=== PATIENT | female | born 1985 | race Caucasian/White ===

== ENCOUNTER 2022-10-04 09:53 | Outpatient (CLI) | payer MEDICAID, SELFPAY | END 2022-10-04 09:54 | disposition home or self-care (01) | LOC: NFLDREF 09:55 | PROVIDERS: PCP Family Medicine; Visit Provider Family Medicine | DX: R30.0 Dysuria (principal); R50.9 Fever, unspecified; R53.83 Other fatigue | CPT/HCPCS: 87086; 87186 ==

== ENCOUNTER 2022-11-17 09:44 | Outpatient (CLI) | payer MEDICAID, SELFPAY | END 2022-11-17 09:45 | disposition home or self-care (01) | LOC: NFLDREF 09:45 | PROVIDERS: PCP Family Medicine; Visit Provider Family Medicine | DX: R30.0 Dysuria (principal) | CPT/HCPCS: 87086 ==

== ENCOUNTER 2023-02-25 08:35 | Outpatient (REF) | payer MEDICAID, SELFPAY | END 2023-02-25 08:36 | disposition home or self-care (01) | LOC: NFLDREF 08:35 | PROVIDERS: PCP Family Medicine; Referring Provider Family Medicine; Visit Provider Physician Assistant | DX: R30.0 Dysuria (principal); N39.0 Urinary tract infection, site not specified | CPT/HCPCS: 87086 ==

== ENCOUNTER 2023-07-18 10:19 | Outpatient (CLI) | payer MEDICAID, SELFPAY | END 2023-07-18 10:20 | disposition home or self-care (01) | PROVIDERS: PCP Family Medicine; Visit Provider Family Medicine | DX: R10.2 Pelvic and perineal pain (principal); Z13.220 Encounter for screening for lipoid disorders; Z13.228 Encounter for screening for other metabolic disorders; Z13.21 Encounter for screening for nutritional disorder; Z13.29 Encounter for screening for other suspected endocrine disorder; Z13.0 Encounter for screening for diseases of the blood and blood-forming organs and certain disorders involving the immune mechanism | CPT/HCPCS: 80053; 80061; 82306; 82607; 82728; 84443; 86258; 86364 ==

== ENCOUNTER 2023-10-15 07:21 | Outpatient (CLI) | payer MEDICAID, SELFPAY ==
--- OUTSIDE RECORDS SUMMARY | 2023-10-15 07:23 | XMS_ITS | Clinical Summary ---
Author Organization [facility] Address [address] [place] [address] Care Team Providers Care Multimedia Producer Name Role Phone Unavailable Primary Care Provider Unavailabl e Social History Tobacco Use Types Packs/Day Years Used Date Smoking Tobacco: Never Assessed Sex and Gender Information Value Date Recorded Sex Assigned at Not on file Gender Identity Not on file Sexual Orientation Not on file Plan of Treatment Not on file
--- OUTSIDE RECORDS SUMMARY | 2023-10-15 07:23 | XMS_ITS | Continuity of Care Document ---
Author Organization [facility] Address [address] [place] [address] Phone Care Team Providers Care Technical Analyst Name Role Phone Anil Laureano Unavailable Unavailable Allergies, Adverse Reactions, Alerts Substance Reaction Status Criticality No Known Allergies Active No Inform ation Medications Medication Instructions Dosage Effective Dates (start - stop) Status Comments Medrol (Willy) 4 mg tablets in a dose pack take by oral route as directed per package instructions 0.00 - Active Procedures Procedure Date Office/Outpatient Visit,[facility] Advance Directives Directive Yes / No Effective Date File Name No Information Encounters Encounter Description Practice Location Reason(s) For Visit Diagnoses Date Provider Providers Copied on Encounter Office/Outpat ient Visit,[place], [facility], [address], [place], [place], [id number], [place] tel:[phone] [facility] Other intervertebral disc degeneration, lumbar region 1 Anastacio Ma. [facility], [address], [id number] , [place]. tel:[phone] Referring Provider: Salomon Reed, [facility] [address] [facility], [place], [address]. tel:[phone] Family History Family Member Type Diagnosis Age At Onset No Information Payers Payer name Insurance type Covered alliance party ID Authoriza tion(s) No Information Social History Type Description Quantity Date Captured Comments Alcohol Use Details Unknown Caffeine Use Details Unknown Mar-12-2021 Tobacco Use Status Current non-smoker Smoking Status Never smoker Non-Smoking Tobacco Use Details : No Details Available : No Details Available Sex Female Vital Signs Date / Time: Height Weight BMI Pulse Rate Blood Pressure Temperature Respiratory Rate Body Surface Area Head Circumference Head Circ. Percentile Wt./Beni. Percentile BMI percentile Pulse Ox Inhaled Ox 11:37 AM 65.00 in 81.193 kg (179.00 lbs) 29.7 9 kg/m eter (2) 98.10 F Chief Complaint And Reason For Visit No Information Reason For Referral Reason For Referral No Information History Of Present Illness Encounter Date Complaint History Of Prese nt Illness No Information Functional Status Date Functional Assessmen t No Information Instructions Date Instruction Additional Infor mation No Information Assessments Type Assessment Date assessment Other intervertebral disc degene ration, lumbar region Patient Care Teams Name Effective Dates (start - stop) Status Members No Information
--- OUTSIDE RECORDS SUMMARY | 2023-10-15 07:23 | XMS_ITS | Referral Summary ---
Author Organization [facility] Address [address] [place] [address] Care Team Providers Care Bioinformatics Technician Name Role Phone Unavailable Primary Care Provider Unavailabl e Social History Tobacco Use Types Packs/Day Years Used Date Smoking Tobacco: Never Assessed Sex and Gender Information Value Date Recorded Sex Assigned at Not on file Gender Identity Not on file Sexual Orientation Not on file Plan of Treatment Not on file
--- OUTSIDE RECORDS SUMMARY | 2023-10-15 07:23 | XMS_ITS | Encounter Summary ---
Author Organization [facility] Address [address] [facility] [place] [address] Care Team Providers Care Fuel System Maintenance Supervisor Name Role Phone Unavailable Primary Care Provider Kristen e Encounter Details Date Type Department Care Team (Late st Contact Info) Description 02/28/2017 Orders Only [facility] [place] [address] [place] [address] [place], Cherise [facility] [address] [facility] [place], [place] [id number] related condition, antepartum (Primary Dx) Social History Tobacco Use Types Packs/Day Years Used Date Smoking Tobacco: Never Assessed Sex and Gender Information Value Date Recorded Sex Assigned at Not on file Gender Identity Not on file Sexual Orientation Not on file documented as of this encounter Plan of Treatment Not on file documented as of this encounter Visit Diagnoses Diagnosis related condition, antepartum- Primary documented in this encounter
--- OUTSIDE RECORDS SUMMARY | 2023-10-15 07:23 | XMS_ITS | Encounter Summary ---
Author Organization [facility] Address [address] [facility] [place] [address] Care Team Providers Care Raker Buffing Wheel Name Role Phone Unavailable Primary Care Provider Unavailabl e Reason for Referral * - Closed Specialty Diagnoses / Procedures Referred By Contharrison t Referred To Contact Diagnoses related condition, antepartum [facility] [address] [place] [address] Referral ID Status Reason Start Date Expiration Date Visits Re quested Visits Authorized [id number] Closed 04/02/2017 04/02/2018 1 1 Comments half sibling has alagille syndrome LEY WORKER Encounter Details Date Type Department Care Team (Late st Contact Info) Description 04/02/2017 Orders Only [facility] [address] [place] [address] [place] [address] [place] [id number] related condition, antepartum (Primary Dx) Social History Tobacco Use Types Packs/Day Years Used Date Smoking Tobacco: Never Assessed Comments Yes Sex and Gender Information Value Date Recorded Sex Assigned at Not on file Gender Identity Not on file Sexual Orientation Not on file documented as of this encounter Plan of Treatment Scheduled Referrals Name Type Priority Associated Diagnoses Orde r Schedule MFM Genetic Counseling Referral Routine related condition, antepartum 1 Occurrences starting 04/02/2017 until 04/02/2018 documented as of this encounter Visit Diagnoses Diagnosis related condition, antepartum- Primary documented in this encounter
--- OUTSIDE RECORDS SUMMARY | 2023-10-15 07:23 | XMS_ITS | Encounter Summary ---
Author Organization [facility] Address [address] [place] [address] Care Team Providers Care Site Promotion Agent Name Role Phone Unavailable Primary Care Provider Kristen e Encounter Details Date Type Department Care Team (Late st Contact Info) Description 04/12/2019 Telephone [facility] [address] [place] [address] Myra Craft, RN Social History Tobacco Use Types Packs/Day Years Used Date Smoking Tobacco: Never Assessed Sex and Gender Information Value Date Recorded Sex Assigned at Not on file Gender Identity Not on file Sexual Orientation Not on file documented as of this encounter Plan of Treatment Not on file documented as of this encounter Visit Diagnoses Not on filedocumented in this encounter
--- NOTE | 2023-10-15 07:45 | CRLHL7_ITS ---
For Patients: As a result of the Century Cures Act, medical imaging exams and procedure reports are released immediately into your electronic medical record. You may view this report before your referring provider. If you have questions, please contact your health care provider. DIGITAL DIAGNOSTIC BILATERAL MAMMOGRAM USING TOMOSYNTHESIS AND COMPUTER-AIDED DETECTION RIGHT BREAST ULTRASOUND CLINICAL HISTORY: RIGHT breast lump. COMPARISON: None. TECHNIQUE: Digital BILATERAL mammogram in four projections with computer-aided detection. Tomosynthesis was used in this interpretation. Real-time ultrasound imaging of RIGHT breast with imaging documentation. BREAST COMPOSITION: There are areas of scattered fibroglandular density. FINDINGS: 3D CC/MLO BILATERAL mammogram images submitted. No suspicious masses or architectural distortion. No suspicious calcifications or adenopathy. Targeted RIGHT breast ultrasound performed at 2 o`clock 7 cm from the nipple corresponding to the area of concern. Normal fibroglandular tissue is present. No fibrocystic change or mass. IMPRESSION: No suspicious findings. No evidence of malignancy. RECOMMENDATIONS: Age-appropriate screening mammography. Results and recommendations discussed with the patient. BI-RADS Category 2: Benign A lay language report of this examination will be provided to the patient. Dictated by Rick Daniel MD @ 10/15/2023 9:03:40 AM jj/Dictated by: Rick Daniel MD @ 10/15/2023 9:03:00 AM (Electronically Signed)
--- NOTE | 2023-10-15 08:15 | CRLHL7_ITS ---
For Patients: As a result of the Cures Act, medical imaging exams and procedure reports are released immediately into your electronic medical record. You may view this report before your referring provider. If you have questions, please contact your health care provider. PLEASE SEE DIGITAL DIAGNOSTIC BILATERAL MAMMOGRAM PERFORMED SAME DAY CRL:[email or web address] burger/Dictated by: Rick Daniel MD @ 10/15/2023 9:03:00 AM (Electronically Signed)
== END 2023-10-15 07:22 | disposition home or self-care (01) ==
LOC: MAMMO 07:21
PROVIDERS: PCP Family Medicine; Visit Provider Family Medicine
DX: N63.12 Unspecified lump in the right breast, upper inner quadrant (principal)
CPT/HCPCS: 76642; 77066; G0279

== ENCOUNTER 2024-10-25 21:28 | Emergency (ER) | payer MEDICAID, SELFPAY ==
--- OUTSIDE RECORDS SUMMARY | 2024-10-25 21:30 | XMS_ITS | Clinical Summary ---
Author Organization [facility] Address [address] [place] [address] Care Team Providers Care Carbon Capture Power Plant Operator Name Role Phone Unavailable Primary Care Provider Unavailabl e Social History Tobacco Use Types Packs/Day Years Used Date Smoking Tobacco: Never Assessed Comments No Sex and Gender Information Value Date Recorded Sex Assigned at Not on file Legal Sex Female 4:23 AM PROGRAMS ASSISTANT Gender Identity Not on file Sexual Orientation Not on file Plan of Treatment Not on file
--- OUTSIDE RECORDS SUMMARY | 2024-10-25 21:30 | XMS_ITS | Encounter Summary ---
Author Organization [facility] Address [address] [place] [address] Care Team Providers Care Head Knitting Machine Fixer Name Role Phone Unavailable Primary Care Provider Kristen e Encounter Details Date Type Department Care Team (Late st Contact Info) Description 04/12/2019 Telephone [email or web address] [address] [place] [address] Myra Craft, RN Social History Tobacco Use Types Packs/Day Years Used Date Smoking Tobacco: Never Assessed Comments No Sex and Gender Information Value Date Recorded Sex Assigned at Not on file Legal Sex Female 4:23 AM DEPARTMENT COORDINATOR Gender Identity Not on file Sexual Orientation Not on file documented as of this encounter Plan of Treatment Not on file documented as of this encounter Visit Diagnoses Not on filedocumented in this encounter
--- OUTSIDE RECORDS SUMMARY | 2024-10-25 21:30 | XMS_ITS | Encounter Summary ---
Author Organization [facility] Address [address] [facility] [place] [address] Care Team Providers Care Bath Design Sales Consultant Name Role Phone Unavailable Primary Care Provider Kristen e Encounter Details Date Type Department Care Team (Late st Contact Info) Description 02/28/2017 Orders Only [facility] [place] [address] [place] [address] [place] [address] [place] [address] related condition, antepartum (Primary Dx) Social History Tobacco Use Types Packs/Day Years Used Date Smoking Tobacco: Never Assessed Comments Unknown Sex and Gender Information Value Date Recorded Sex Assigned at Not on file Legal Sex Female 4:23 AM PRETZEL PACKER Gender Identity Not on file Sexual Orientation Not on file documented as of this encounter Plan of Treatment Not on file documented as of this encounter Visit Diagnoses Diagnosis related condition, antepartum- Primary documented in this encounter
--- OUTSIDE RECORDS SUMMARY | 2024-10-25 21:30 | XMS_ITS | Encounter Summary ---
Author Organization [facility] Address [address] [place] [address] Care Team Providers Care Electronic Field Service Engineer Name Role Phone Unavailable Primary Care Provider Unavailabl e Reason for Referral * - Closed Specialty Diagnoses / Procedures Referred By Contac t Referred To Contact Diagnoses related condition, antepartum [place] Phone: tel: fax: Referral ID Status Reason Start Date Expiration Date Visits Re quested Visits Authorized [id number] Closed 04/02/2017 04/02/2018 1 1 Comments half sibling has alagille syndrome TIC ROOM OPERATOR Encounter Details Date Type Department Care Team (Late st Contact Info) Description 04/02/2017 Orders Only [facility] [place] [address] [place] [address] [facility] [address] [place] [address] related condition, antepartum (Primary Dx) Social History Tobacco Use Types Packs/Day Years Used Date Smoking Tobacco: Never Assessed Comments Yes Sex and Gender Information Value Date Recorded Sex Assigned at Not on file Legal Sex Female 4:23 AM CAUSTIC ROOM OPERATOR Gender Identity Not on file Sexual Orientation [...]
[2024-10-25 21:34] VITALS: BP 138/94; PULSE 79; RESP 18; TEMP 36.4; O2SAT 97; BMI 28.3
[2024-10-25 22:27] LABS: Strep A DNA Probe* NOT DETECTED (Not Detectd)
--- NOTE | 2024-10-25 22:31 | ED_ITS ---
HPI - General Adult General Time Seen by Provider: 22:31 Date Seen: 10/25/24 Chief complaint: Sore Throat Stated complaint: sore throat Time Seen by Provider: 10/25/24 22:31 Source: patient Mode of arrival: ambulatory Limitations: no limitations History of Present Illness HPI narrative: Gina is a very pleasant 38-year-old female with history of B12 deficiency othe rwise healthy who comes to the emergency room with right sided throat pain. Patient had at cold-like symptoms viral symptoms last week but improved after we can symptoms resolved. However, then begin experiencing intermittent right sided throat and neck pain. Initially this was intermittent and mainly present in the mornings but would go way at night. Today however the discomfort has been persistent all day. She is having a hard time swallowing but not having a hard time breathing. She has not had any fever this week. Related Data Allergies Allergy/AdvReac Type Severity Reaction Status Date / Time oxycodone Allergy Severe Agitated Verified 04/18/24 09:28 tomato Allergy Severe Swelling Verified 04/18/24 09:28 of Lip/Tongue/Throat adhesive Allergy Intermediate Rash Verified 04/18/24 09:28 Review of Systems Status of ROS: Reports: 10 or more systems reviewed and unremarkable except as noted in History and below Const: Denies: fever or chills ENMT: Reports: neck pain; Denies: nasal congestion Cardio: Denies: chest pain or shortness of breath with exertion Resp: Denies: shortness of breath or cough GI: Denies: abdominal pain, nausea or vomiting : Denies: painful urination Musculo: Reports: neck pain; Denies: back pain or extremity pain Integ/Breast: Denies: redness or sores Neuro: Denies: headache PFSH PFSH Medical History Subacromial impingement of left shoulder ?M75.42 - Impingement syndrome of left shoulder (ICD-10) Arthritis of left acromioclavicular joint ?M19.012 - Primary osteoarthritis, left shoulder (ICD-10) Vaginal pain ?R10.2 - Pelvic and perineal pain (ICD-10) Generalized anxiety disorder ?F41.1 - Generalized anxiety disorder (ICD-10) Endometriosis ?N80.9 - Endometriosis, unspecified (ICD-10) Adverse drug effect ?T50.905A - Adverse effect of unspecified drugs, medicaments and biological substances, initial encounter (ICD-10) Stress incontinence in female ?N39.3 - Stress incontinence (female) (male) (ICD-10) Pruritus of vagina ?N89.8 - Other specified noninflammatory disorders of vagina (ICD-10) Jarrett's neuroma of right foot ?G57.61 - Lesion of plantar nerve, right lower limb (ICD-10) Meralgia paresthetica ?G57.10 - Meralgia paresthetica, unspecified lower limb (ICD-10) Herniated lumbar intervertebral disc ?M51.26 - Other intervertebral disc displacement, lumbar region (ICD-10) Endometriosis of both ovaries ?N80.103 - Endometriosis of bilateral ovaries, unspecified depth (ICD-10) Pharyngitis ?J02.9 - Acute pharyngitis, unspecified (ICD-10) Surgical History History of arthroscopy of right shoulder (09/09/15) ?Z98.890 - Other specified postprocedural states (ICD-10) Spontaneous vaginal delivery ?O80 - Encounter for full-term uncomplicated delivery (ICD-10) Status post tubal ligation at time of delivery, current hospitalization ?O80 - Encounter for full-term uncomplicated delivery (ICD-10) ?Z30.2 - Encounter for sterilization (ICD-10) Status post laparoscopic hysterectomy (02/25/19) ?Z90.710 - Acquired absence of both cervix and uterus (ICD-10) History of suburethral sling procedure (2018) ?Z98.890 - Other specified postprocedural states (ICD-10) Family History Maternal Grandmother Stroke, Onset Age: 71 Depression Lung cancer Maternal Grandfather Prostate cancer, Onset Age: 70 Mother Bipolar disorder Sister Bipolar disorder ADHD Paternal Grandmother Suicide Skin cancer Daughter ADHD Other Diabetes Social History Narrative: , 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[employer], 2 children Does not exercise Lifetime nonsmoker 2 alcoholic drinks a week No drug use What is your current living situation?: I presently have a place to live Problems where you live: declined to answer In the past 12 months, utilities in danger of being shut off: no In past 12 months, lack of transportation kept you from medical appts, meetings, work, or getting things needed for daily living: no In the past 12 mos, have been you worried that your food would run out before you had money to buy more?: never true In the past 12 mos, the food you bought just didn't last and you didn't have money to buy more?: never true How often does anyone, including family, friends and others, physically hurt you : never How often does anyone, including family, friends and others, insult or talk down to you: never How often does anyone, including family, friends and others, threaten you with harm: never How often does anyone, including family, friends and others, scream or curse at you: never Exam Narrative: Exam Narrative: Alert and oriented. No evidence of hot potato like voice. No trismus. She does have discomfort when she is swallowing. Eyes are clear TMs without erythema or fluid. Oral cavity with moist mucous membranes. I do not see any enlargement of the tonsils. There is no erythema or exudate noted. Neck is supple. Questionable increased right anterior cervical lymphadenopathy but it is nontender. Heart with regular rate and rhythm and lungs are clear. Moving all extremities. Const: Vital Signs, click to edit/add: Vital Signs - 24 hr 10/25/24 21:34 10/25/24 23:23 Temperature 97.5 F L 98.7 F Pulse Rate [Right Pulse Oximeter] 79 72 Respiratory Rate 18 18 Blood Pressure [Ri ght Upper Arm] 138/94 H 129/95 H Pulse Oximetry 97 97 Oxygen Delivery Me thod Room Air Room Air Documenting provider has reviewed patient's vital signs: yes Course Course ED Course: Patient is negative for strep. Given the fact that this is unilateral evolving and increasing discomfort I do have worry about a possible underlying bacterial infection. Differential diagnosis includes but is not limited to tonsillitis, pharyngitis, pharyngeal abscess, musculoskeletal pain. At this time given 7 days of increasing right-sided neck pain preceded by 1 week of viral type infection I do feel that we should proceed with CT to evaluate for possible evolving abscess. Will also check CBC, CRP, basic panel. Will give patient 1 L of saline and a dose of Toradol 15 mg IV. Reevaluation(s) Reevaluation #1: Patient noted to be feeling better after fluids and Toradol. Vital Signs Vital signs: Initial Vital Signs Temperature 97.5 F L 10/25/24 21:34 Temperature Source Temporal Artery Scan 10/25/24 21:34 Pulse Rate 79 10/25/24 21:34 Respiratory Rate 18 10/25/24 21:34 Blood Pressure 138/94 H 10/25/24 21:34 Blood Pressure Mean 108 H 10/25/24 21:34 Blood Pressure Position Sitting 10/25/24 21:34 Pulse Oximetry 97 10/25/24 21:34 Oxygen Delivery Method Room Air 10/25/24 21:34 Vital Signs Temperature 97.5 F L 10/25/24 21:34 Pulse Rate 79 10/25/24 21:34 Respiratory Rate 18 10/25/24 21:34 Blood Pressure 138/94 H 10/25/24 21:34 Pulse Oximetry 97 10/25/24 21:34 Oxygen Delivery Method Room Air 10/25/24 21:34 Temperature 98.7 F 10/25/24 23:23 Pulse Rate 72 10/25/24 23:23 Respiratory Rate 18 10/25/24 23:23 Blood Pressure 129/95 H 10/25/24 23:23 Pulse Oximetry 97 10/25/24 23:23 Oxygen Delivery Method Room Air 10/25/24 23:23 Medications Administered Medications: Discontinued Medications Generic Name Dose Route Start Last Admin Trade Name Freq PRN Reason Stop Dose Admin Sodium Chloride 1,000 mls @ 1,000 mls/hr 10/25/24 22:43 10/25/24 23:58 0.9 % Sodium Chloride 1000 Ml IV 10/25/24 23:42 Infused .Q1H MELONY Infusion Ketorolac Tromethamine 15 mg 10/25/24 22:42 10/25/24 23:20 Ketorolac 15 Mg/Ml Inj IVP 10/25/24 22:43 15 mg ONCE ONE Administration Medical Decision Making MDM Narrative Medical decision making narrative: 1. Pharyngitis-at this time unilateral symptoms but are increasing over the last 7 days. Spoke to patient about the use of antibiotics at this time given CT findings which indicate possible pharyngitis. She is in agreement. Will use Augmentin. Patient will need to return for increasing symptoms difficulty breathing or for for swelling gets markedly worse. Att[place], negative. White count reassuring. 2. Thyroid nodule-she will need to follow-up with her primary MD for scheduling of outpatient ultrasound. This was discussed with the patient and included in her discharge instructions. 2. Disposition-treat with Augmentin 875 p.o. b.i.d. for 10 days. Patient should return for increasing difficulty with speech, swallowing, high fever and as needed. Medical Records Medical records reviewed: Yes I reviewed the patient's medical records Lab Data Lab results reviewed: Yes I reviewed the patient's lab results Labs: Lab Results 10/25/24 10/25/24 Range/Units 10:55 21:57 WBC 7.58 (4.50-11.00) K/uL RBC 4.14 (4.00-5.20) m/uL Hgb 12.4 (12.0-16.0) gm/dL Hct 37.2 (33.0-51.0) % MCV 90 (80-100) fL MCH 30 (26-34) pg MCHC 33 (32-36) gm/dL RDW Coeff of Randolph 12.2 (11.5-15.5) % Plt Count 279 (140-440) K/uL Neut % (Auto) 58.3 (42.0-72.0) % Lymph % (Auto) 32.8 (20-44) % [place] % (Auto) 5.3 (0.0-11.0) % Eos % (Auto) 2.4 (0.0-7.0) % Baso % (Auto) 0.3 (0.0-3.0) % Neut # (Auto) 4.42 (1.7-7.0) K/uL Lymph # (Auto) 2.49 (0.90-2.90) K/uL [place] # (Auto) 0.40 (0.00-0.90) K/UL Eos # (Auto) 0.18 (0.00-0.50) K/uL Baso # (Auto) 0.02 (0.00-0.30) K/uL Abs Immat Gran (auto) 0.07 (0.00-0.30) K/uL Imm/Tot Granulo (auto) 0.9 % Sodium 137 (135-149) mmol/L Potassium 3.4 L (3.6-5.1) mmol/L Chloride 104 (96-114) mmol/L Carbon Dioxide 24 (20-32) mmol/L Anion Gap 9 (7-15) mEq/L BUN 12 (5-24) mg/dL Creatinine 0.7 (0.5-1.5) mg/dL Estimated Creat Clear 93.17 Estimated GFR 113 ml/min Glucose 115 (60-115) mg/dL Calcium 9.0 (8.4-10.6) mg/dL Total Bilirubin 0.2 (0.1-1.5) mg/dL AST 24 (12-35) U/L ALT 19 (4-35) U/L Alkaline Phosphatase 75 (40-150) U/L C-Reactive Protein 0.9 (0.5-1.0) mg/dL Total Protein 7.1 (6.0-8.3) g/dL Albumin 4.3 (3.3-5.0) g/dL Monoscreen Negative (Negative) Group A Strep DNA NOT DETECTED (Not Detectd) Imaging Data Soft tissue neck: Attestation: I have reviewed the pertinent imaging results. My impression: By my read no evidence of epiglottitis or abscess Radiologist's impression: Skull base: Unremarkable. Pharynx/Larynx/Trachea: Mild enhancement of the nasopharyngeal and oropharyngeal mucosa. Airways patent. Hypopharynx, larynx, and trachea are unremarkable. Salivary glands: Unremarkable. Thyroid gland: Asymmetric nodular enlargement of the left thyroid lobe. Lymph nodes: Mildly enlarged level 2 lymph nodes. Vessels: Unremarkable for age. Bones: Unremarkable for age. Misc: No inflammation, mass or fluid collection. Lung apices: Unremarkable. IMPRESSION: 1. Mild enhancement of the nasopharyngeal and oropharyngeal mucosa, which may be seen in the setting of pharyngitis. No focal fluid collection. 2. Mildly enlarged level 2 lymph nodes, nonspecific possibly reactive. 3. Asymmetric nodular enlargement of the left thyroid lobe. Recommend further characterization with nonemergent dedicated thyroid ultrasound. Discharge Plan Discharge Clinical Impression: Pharyngitis, Thyroid nodule Patient Disposition: Home, Self-Care Condition: Improved Additional Instructions: Start Augmentin tonight and continue for 10 days. Alternate ibuprofen and Tylenol every 4 hours for pain relief Return for increasing symptoms, onset of fever, onset of neck swelling or difficulty talking or swallowing. Follow-up for ultrasound of in thyroid nodule with your primary MD. Activity Level: No Restrictions Discharge Diet: Regular Follow Up/Referrals: Iris Ang MD [Primary Care Provider, Family Practice] Stand Alone Forms: [facility] Info Instructions
--- NOTE | 2024-10-25 22:42 | CRLHL7_ITS ---
For Patients: As a result of the Century Cures Act, medical imaging exams and procedure reports are released immediately into your electronic medical record. You may view this report before your referring provider. If you have questions, please contact your health care provider. INDICATION: Right-sided throat and neck pain. TECHNIQUE: CT soft tissue of the neck was acquired with 75 cc Isovue 370 IV contrast. COMPARISON: None. FINDINGS: Skull base: Unremarkable. Pharynx/Larynx/Trachea: Mild enhancement of the nasopharyngeal and oropharyngeal mucosa. Airways patent. Hypopharynx, larynx, and trachea are unremarkable. Salivary glands: Unremarkable. Thyroid gland: Asymmetric nodular enlargement of the left thyroid lobe. Lymph nodes: Mildly enlarged level 2 lymph nodes. Vessels: Unremarkable for age. Bones: Unremarkable for age. Misc: No inflammation, mass or fluid collection. Lung apices: Unremarkable. IMPRESSION: 1. Mild enhancement of the nasopharyngeal and oropharyngeal mucosa, which may be seen in the setting of pharyngitis. No focal fluid collection. 2. Mildly enlarged level 2 lymph nodes, nonspecific possibly reactive. 3. Asymmetric nodular enlargement of the left thyroid lobe. Recommend further characterization with nonemergent dedicated thyroid ultrasound. Please note that all CT scans at this facility use dose modulation, iterative reconstruction, and/or weight-based dosing when appropriate to reduce radiation dose to as low as reasonably achievable. Dictated by Francesco Grimm MD @ 10/25/2024 11:26:53 PM (Electronically Signed)
[2024-10-25 23:02] LABS: Hematocrit 37.2 % (33.0-51.0); Hemoglobin* 12.4 gm/dL (12.0-16.0); Immature Granulocytes Abs Auto 0.07 K/uL (0.00-0.30); Immature Granulocytes Pct Auto 0.9 %; Lymphocytes Absolute Auto 2.49 K/uL (0.90-2.90); Mean Corpuscular HGB Conc 33 gm/dL (32-36); Mean Corpuscular Hemoglobin 30 pg (26-34); Mean Corpuscular Volume 90 fL (80-100); RDW Coefficient of Variation % 12.2 % (11.5-15.5); Red Blood Count 4.14 m/uL (4.00-5.20); White Blood Count* 7.58 K/uL (4.50-11.00)
[2024-10-25 23:04] LABS: Slide Review Reflex No
[2024-10-25 23:14] LABS: Albumin* 4.3 g/dL (3.3-5.0); Chloride* 104 mmol/L (96-114); Potassium* 3.4 mmol/L (3.6-5.1); Sodium* 137 mmol/L (135-149)
[2024-10-25 23:17] LABS: Alanine Aminotransferase* 19 U/L (4-35); Alkaline Phosphatase* 75 U/L (40-150); Anion Gap 9 mEq/L (7-15); Aspartate Amino Transferase* 24 U/L (12-35); Bilirubin Total* 0.2 mg/dL (0.1-1.5); Blood Urea Nitrogen* 12 mg/dL (5-24); Carbon Dioxide* 24 mmol/L (20-32); Creatinine* 0.7 mg/dL (0.5-1.5); Est. Creatinine Clearance* 93.17; Estimated Glomerular Filt Rate 113 ml/min; Mono Screen* Negative (Negative); Total Protein* 7.1 g/dL (6.0-8.3)
[2024-10-25 23:18] LABS: Calcium* 9.0 mg/dL (8.4-10.6); Glucose* 115 mg/dL (60-115)
[2024-10-25 23:23] VITALS: BP 129/95; PULSE 72; RESP 18; TEMP 37.1; O2SAT 97
== END 2024-10-26 00:04 | disposition home or self-care (01) ==
PROVIDERS: Emergency Provider Family Medicine; PCP Family Medicine
DX: J02.9 Acute pharyngitis, unspecified (principal); M54.2 Cervicalgia; E04.1 Nontoxic single thyroid nodule
CPT/HCPCS: 36415; 70491; 80053; 85025; 86140; 86308; 87651; 96374; 99284; 99285; J1885; J7030; Q9967

== ENCOUNTER 2024-10-30 14:55 | Outpatient (CLI) | payer MEDICAID, SELFPAY | END 2024-10-30 14:56 | disposition home or self-care (01) | PROVIDERS: PCP Family Medicine; Visit Provider Family Medicine | DX: E04.1 Nontoxic single thyroid nodule (principal); E55.9 Vitamin D deficiency, unspecified; E78.5 Hyperlipidemia, unspecified; E53.8 Deficiency of other specified B group vitamins | CPT/HCPCS: 80061; 82306; 82607; 84443 ==

== ENCOUNTER 2024-11-10 10:00 | Outpatient (CLI) | payer MEDICAID, SELFPAY ==
--- NOTE | 2024-11-10 10:45 | CRLHL7_ITS ---
For Patients: As a result of the Century Cures Act, medical imaging exams and procedure reports are released immediately into your electronic medical record. You may view this report before your referring provider. If you have questions, please contact your health care provider. INDICATION: nontoxic single thyroid nodule COMPARISON: CT 10/25/2024 TECHNIQUE: Kruger scale and color Doppler images were acquired of the thyroid gland. FINDINGS: Hypoechoic solid nodule left thyroid lobe measures 1.1 x 0.9 x 1.1 cm, TR 4. Solid hypoechoic nodule left thyroid lobe measures 2.2 x 1.1 x 1.6 cm, TR 4. Isthmus measures 3 millimeters. The right lobe measures 5.3 x 1.0 x 1.3 cm and the left lobe measures 4.7 x 2.2 x 2.2 cm in size. The color Doppler images demonstrate normal vascularity. There is no evidence of cervical lymphadenopathy or parathyroid mass. IMPRESSION: 2.2 cm TR 4 nodule left thyroid lobe. FNA recommended. Dictated by Rick Daniel MD @ 11/10/2024 10:58:14 AM (Electronically Signed)
== END 2024-11-10 10:01 | disposition home or self-care (01) ==
LOC: US 10:01
PROVIDERS: PCP Family Medicine; Visit Provider Family Medicine
DX: E04.1 Nontoxic single thyroid nodule (principal)
CPT/HCPCS: 76536